=== PATIENT | male | born 1980 | race Hispanic/Latino ===

== ENCOUNTER 2018-09-09 15:31 | Inpatient (IN) | payer SELFPAY ==
--- NOTE | 2018-09-09 15:40 | ER ---
Nurse's Notes [facility] Name: Ronna Gómez Age: 38 yrs Sex: Male : 1980 Arrival Date: 09/09/2018 Time: 15:32 Bed 3 Private MD: Diagnosis: ST elevation (STEMI) myocardial infarction of anterior wall;Other chest pain Presentation: 09/09 15:36 Acuity: ANATOLY 1 ph 15:36 Presenting complaint: EMS states: Was at work in office and began to experience chest ph pain radiating to L arm and N/V, [address] elevation, 4 Zofran, 324 ASA and 100 mcg Fentanyl given. Transition of care: patient was not received from another setting of care. Onset of symptoms was September 09, 2018. Risk Assessment: Do you want to hurt yourself or someone else? Patient reports no desire to harm self or others. Initial Sepsis Screen: Does the patient meet any 2 criteria? No. Patient's initial sepsis screen is negative. Does the patient have a suspected source of infection? No. Patient's initial sepsis screen is negative. Care prior to arrival: Medication(s) given: ASA, 81 mg, x 4, zofran 4 mg, Fentanyl 100mcg IV initiated. 22 GA, in the right hand. 15:36 Method Of Ar[facility]: [facility] T[facility] Assessment: 15:40 General: Appears in no apparent distress. uncomfortable, Behavior is cooperative, ph appropriate for age, restless. Pain: Complains of pain in anterior aspect of left upper chest Pain radiates to left arm Pain began suddenly. Cardiovascular: Reports chest pain, diaphoresis, nausea, vomiting, Capillary refill < 3 seconds in bilateral fingers Rhythm is sinus tachycardia. Cardiovascular: Chest pain is described as severe, quality is heaviness, pressure, sharp, is located in left anterior chest wall radiates to left arm(s). Respiratory: Reports shortness of breath at rest Airway is patent Respiratory effort is even, unlabored, Respiratory pattern is regular, symmetrical. Derm: Skin is intact, is healthy with good turgor, Skin is clammy, Skin is pale, Skin temperature is warm. Musculoskeletal: Circulation, motion, and sensation intact. Range of motion: intact in all extremities. Historical: - Allergies: 16:06 PENICILLINS; ph - PMHx: 16:06 Hypertension; ph - Immunization history:: Adult Immunizations unknown. - Family history:: not pertinent. - Social history:: Smoking status: Patient uses tobacco products, smokes one pack cigarettes per day. Smoking status: Patient uses tobacco products, smokes one pack cigarettes per day. - Ebola Screening: : No symptoms or risks identified at this time. Screenin:00 Abuse screen: Denies threats or abuse. Denies injuries from another. Nutritional ph screening: Nutritional screening: No deficits noted. Tuberculosis screening: No symptoms or risk factors identified. Fall Risk None identified. Assessment: 15:45 Reassessment: Dr. Bustamante a bedside to speak with patient, pt consented for heart iw catheterization, using language line, pt verbalizes understanding. 15:55 Reassessment: solar lab technician team at bedside, pt taken via stretcher, on monitor to dental laboratory manager ph for cardia cathertization. Vital Signs: 15:38 BP 143 / 93; Pulse 140; Resp 22; Temp 97.4; Pulse Ox 100% on R/A; ph 15:55 Pulse 111; Resp 18; Pulse Ox 100% on 2 lpm NC; ph Vitals: 15:55 Cardiac Rhythm Assessment Sinus tach. ph ED Course: 15:32 Patient arrived in ED. bd 15:32 Nic Issa MD is Attending Physician. nomi 15:35 Rosita Beltran RN is Primary Nurse. ph 15:36 Triage completed. ph 15:38 Jb Singh MD is Hospitalizing Provider. nomi 15:38 EKG done, by horticultural technical officer. reviewed by Nic Issa MD. sm3 15:40 No provider procedures requiring assistance completed. Inserted saline lock: 18 gauge ph in right antecubital area, using aseptic technique. Patient admitted, IV remains in place. 15:40 Patient has correct armband on for positive identification. Placed in gown. Bed in low ph position. Side rails up X2. potline monitor on. Pulse ox on. NIBP on. 15:40 Arm band placed on. ph 15:52 XRAY Chest (1 view) In Process Unspecified. EDMS Administered Medications: 15:43 Drug: Lopressor 5 mg Route: IVP; Site: right antecubital; ph 15:55 Follow up: Response: No adverse reaction ph 15:49 Not Given (given by EMS): Aspirin 81 mg PO once ph 15:53 Drug: Effient 60 mg Route: PO; ph 15:55 Follow up: Response: No adverse reaction ph 16:15 Not Given (Physician Discretion): morphine 4 mg IVP once ph 16:15 Not Given (Physician Discretion): Zofran 4 mg IVP once; over 2 minutes ph 16:16 Not Given (Physician Discretion): NS 0.9% 1000 ml IV at 1 bolus Per protocol; 1000 mL ph bolus Outcome: 15:40 Decision to Hospitalize by Provider. nomi 15:56 Admitted to Nurse Charge Rn accompanied by nurse, accompanied by tech, via stretcher. iw 15:56 Condition: stable 15:56 Instructed on the need for admit, Demonstrated understanding of instructions. 16:17 Patient left the ED. ph Signatures: Dispatcher [employer] EDJuanis Verde Corey, MD MD cha Williams, Farnaz, RN CARLOTA Rosita Beltran RN RN Jonathan, Maricel 3
--- NOTE | 2018-09-09 15:40 | EDPHYS ---
Physician Documentation [facility] Name: Ronna Gómez Age: 38 yrs Sex: Male : 1980 Arrival Date: 09/09/2018 Time: 15:32 Bed 3 Private MD: ED Physician Nic Issa HPI: 09/09 15:34 This 38 yrs old Male presents to ER via Unassigned with complaints of chest nomi pain. 15:34 The patient or guardian reports chest pain that is located primarily in the substernal nomi area. The pain does not radiate. Associated signs and symptoms: The patient has no apparent associated signs or symptoms. The chest pain is described as burning, a heaviness, causing indigestion, a pressure. Duration: The patient or guardian reports a single episode, that is still ongoing. Modifying factors: The symptoms are alleviated by nothing. the symptoms are aggravated by nothing. Severity of pain: At its worst the pain was moderate in the emergency department the pain is unchanged. The patient has not experienced similar symptoms in the past. Historical: - Allergies: 16:06 PENICILLINS; ph - PMHx: 16:06 Hypertension; ph - Immunization history:: Adult Immunizations unknown. - Family history:: not pertinent. - Social history:: Smoking status: Patient uses tobacco products, smokes one pack cigarettes per day. Smoking status: Patient uses tobacco products, smokes one pack cigarettes per day. - Ebola Screening: : No symptoms or risks identified at this time. ROS: 15:34 Constitutional: Negative for fever, chills, and weight loss, Eyes: Negative for injury, nomi pain, redness, and discharge, ENT: Negative for injury, pain, and discharge, Neck: Negative for injury, pain, and swelling, Respiratory: Negative for shortness of breath, cough, wheezing, and pleuritic chest pain, Abdomen/GI: Negative for abdominal pain, nausea, vomiting, diarrhea, and constipation, Back: Negative for injury and pain, : Negative for injury, bleeding, discharge, and swelling, MS/Extremity: Negative for injury and deformity, Skin: Negative for injury, rash, and discoloration, Neuro: Negative for headache, weakness, numbness, tingling, and seizure, Psych: Negative for depression, anxiety, suicide ideation, homicidal ideation, and hallucinations, Allergy/Immunology: Negative for hives, rash, and allergies, Endocrine: Negative for neck swelling, polydipsia, polyuria, polyphagia, and marked weight changes, Hematologic/Lymphatic: Negative for swollen nodes, abnormal bleeding, and unusual bruising. 15:34 Cardiovascular: Positive for chest pain. Exam: 15:34 Constitutional: This is a well developed, well nourished patient who is awake, alert, nomi and in no acute distress. Head/Face: Normocephalic, atraumatic. Eyes: Pupils equal round and reactive to light, extra-ocular motions intact. Lids and lashes normal. Conjunctiva and sclera are non-icteric and not injected. Cornea within normal limits. Periorbital areas with no swelling, redness, or edema. ENT: Nares patent. No nasal discharge, no septal abnormalities noted. Tympanic membranes are normal and external auditory canals are clear. Oropharynx with no redness, swelling, or masses, exudates, or evidence of obstruction, uvula midline. Mucous membranes moist. Neck: Trachea midline, no thyromegaly or masses palpated, and no cervical lymphadenopathy. Supple, full range of motion without nuchal rigidity, or vertebral point tenderness. No Meningismus. Chest/axilla: Normal chest wall appearance and motion. Nontender with no deformity. No lesions are appreciated. Cardiovascular: Regular rate and rhythm with a normal S1 and S2. No gallops, murmurs, or rubs. Normal PMI, no JVD. No pulse deficits. Respiratory: Lungs have equal breath sounds bilaterally, clear to auscultation and percussion. No rales, rhonchi or wheezes noted. No increased work of breathing, no retractions or nasal flaring. Abdomen/GI: Soft, non-tender, with normal bowel sounds. No distension or tympany. No guarding or rebound. No evidence of tenderness throughout. Back: No spinal tenderness. No costovertebral tenderness. Full range of motion. Male : Normal genitalia with no discharge or lesions. MS/ Extremity: Pulses equal, no cyanosis. Neurovascular intact. Full, normal range of motion. Neuro: Awake and alert, GCS 15, oriented to person, place, time, and situation. Cranial nerves II-XII grossly intact. Motor strength 5/5 in all extremities. Sensory grossly intact. Cerebellar exam normal. Normal gait. Psych: Awake, alert, with orientation to person, place and time. Behavior, mood, and affect are within normal limits. 15:34 Skin: Appearance: Color: dusky, Temperature: warm, Moisture: diaphoretic, petechiae, not noted. Vital Signs: 15:38 BP 143 / 93; Pulse 140; Resp 22; Temp 97.4; Pulse Ox 100% on R/A; ph 15:55 Pulse 111; Resp 18; Pulse Ox 100% on 2 lpm NC; ph MDM: 15:32 Patient medically screened. [facility] 15:38 Data reviewed: vital signs, nurses notes, lab test result(s), EKG, radiologic studies, [facility] plain films. 09/09 15:34 Order name: Basic Metabolic Panel [facility] 09/09 15:34 Order name: CBC with Diff [facility] 09/09 15:34 Order name: LFT's [facility] 09/09 15:34 Order name: Magnesium [facility] 09/09 15:34 Order name: NT PRO-BNP [facility] 09/09 15:34 Order name: PT-INR [facility] 09/09 15:34 Order name: Troponin (emerg Dept Use Only) [facility] 09/09 15:34 Order name: XRAY Chest (1 view) [facility] 09/09 15:34 Order name: UDS [facility] 09/09 15:35 Order name: Basic Metabolic Panel [facility] 09/09 15:35 Order name: CBC with Automated Diff [facility] 09/09 15:35 Order name: Liver (Hepatic) Function [facility] 09/09 15:34 Order name: EKG; Complete Time: 15:37 [facility] 09/09 15:34 Order name: Cardiac monitoring; Complete Time: 15:45 [facility] 09/09 15:34 Order name: EKG - Nurse/Tech; Complete Time: 15:45 [facility] 09/09 15:34 Order name: IV Saline Lock; Complete Time: 15:46 [facility] 09/09 15:34 Order name: Labs collected and sent; Complete Time: 15:46 [facility] 09/09 15:34 Order name: O2 Per Protocol; Complete Time: 15:46 [facility] 09/09 15:34 Order name: O2 Sat Monitoring; Complete Time: 15:46 [facility] 09/09 15:34 Order name: NPO; Complete Time: 16:16 [facility] Administered Medications: 15:43 Drug: Lopressor 5 mg Route: IVP; Site: right antecubital; ph 15:55 Follow up: Response: No adverse reaction ph 15:49 Not Given (given by EMS): Aspirin 81 mg PO once ph 15:53 Drug: Effient 60 mg Route: PO; ph 15:55 Follow up: Response: No adverse reaction ph 16:15 Not Given (Physician Discretion): morphine 4 mg IVP once ph 16:15 Not Given (Physician Discretion): Zofran 4 mg IVP once; over 2 minutes ph 16:16 Not Given (Physician Discretion): NS 0.9% 1000 ml IV at 1 bolus Per protocol; 1000 mL ph bolus Disposition: 09/09/18 15:40 Hospitalization ordered by Jb Singh for Inpatient Admission. Preliminary diagnosis are ST elevation (STEMI) myocardial infarction of anterior wall, Other chest pain. - Bed requested for Intensive Care Unit. - Status is Inpatient Admission. ph - Condition is Serious. - Problem is new. - Symptoms are unchanged. UTI on Admission? No Signatures: Dispatcher [employer] EDNic Tavares MD MD cha Williams, Irene, RN RN Rosita Beltran RN RN ph Corrections: (The following items were deleted from the chart) 15:40 15:40 Hospitalization Ordered by Jb Singh MD for Inpatient Admission. Preliminary nomi diagnosis is ST elevation (STEMI) myocardial infarction of anterior wall; Other chest pain. Bed requested for Telemetry/MedSurg (Inpatient). Status is Inpatient Admission. Condition is Serious. Problem is new. Symptoms are unchanged. UTI on Admission? No. nomi 16:17 15:40 09/09/2018 15:40 Hospitalization Ordered by Jb Singh MD for Inpatient ph Admission. Preliminary diagnosis is ST elevation (STEMI) myocardial infarction of anterior wall; Other chest pain. Bed requested for Intensive Care Unit. Status is Inpatient Admission. Condition is Serious. Problem is new. Symptoms are unchanged. UTI on Admission? No. nomi
[2018-09-09] MEDS ORDERED: NA CHLORIDE 0.9% 1,000 ML ONE ×2 (15:55→17:17)
[2018-09-09] MEDS ORDERED: ONDANSETRON 4 MG/2 ML VIAL ONE (15:55)
[2018-09-09] MEDS ORDERED: HEPA 1000U/500MLS 2,000 UNIT/1,000 ML BAG IV ONE (15:55)
[2018-09-09] MEDS ORDERED: LIDOCAINE 1% MPF 30 ML VIAL ONE (15:55)
[2018-09-09] MEDS ORDERED: MORPHINE 4 MG/ML SYR ONE (15:55)
[2018-09-09] MEDS ORDERED: METOPROLOL TARTRATE 5 MG/5 ML INJ IV ONE ×4 (15:55→17:06)
[2018-09-09] MEDS ORDERED: PRASUGREL (EFFIENT) 10 MG TAB ONE (16:02)
[2018-09-09] MEDS ORDERED: NA CHLORIDE 0.9% 100 ML IV ONE (16:02)
[2018-09-09] MEDS ORDERED: NICARDIPINE HCL 25 MG/10 ML IV ONE (16:03)
[2018-09-09] MEDS ORDERED: HEPARIN 5000 UNIT/ML 1 ML VIAL ONE (16:03)
[2018-09-09] MEDS ORDERED: ATROPINE SULF 1 MG/10 ML SYR IV ONE (16:03)
[2018-09-09] MEDS ORDERED: FENTANYL CITR 100 MCG/2 ML ONE (16:07)
[2018-09-09] MEDS ORDERED: MIDAZOLAM HCL 2 MG/2 ML INJ ONE ×2 (16:07→16:30)
[2018-09-09 16:13] LABS: Protime INR 0.99
[2018-09-09 16:15] LABS: Absolute Lymphocytes (CBC) 7.4 K/uL (0.7-4.9); Basophils % 0.4 % (0-1.3); Eosinophils % 0.1 % (0-4.4); Hematocrit 45.8 % (39.6-49.0); Lymphocytes % 41.1 % (15.3-44.8); MPV 11.4 fL (7.6-11.3); Monocytes % 7.6 % (3.3-12.3); RBC Red Blood Cell Count 4.82 M/uL (4.33-5.43)
[2018-09-09 16:38] LABS: ALT/SGPT 41 U/L (12-78); AST/SGOT 19 U/L (15-37); Alkaline Phosphatase 55 U/L (45-117); BUN Blood Urea Nitrogen 16 mg/dL (7-18); Bicarbonate 22 mmol/L (21-32); Bilirubin Direct 0.1 mg/dL (0-0.2); Bilirubin Total 0.3 mg/dL (0.2-1.0); Glucose Level 170 mg/dL (74-106); Protein, Total 7.6 g/dL (6.4-8.2); Sodium Level 142 mmol/L (136-145); Troponin (Emerg Dept Use Only) 0.05 ng/mL (0.0-0.045)
[2018-09-09 16:50] LABS: NT PRO-BNP < 5 pg/mL (<125)
--- NOTE | 2018-09-09 17:18 | EKG ---
Test Date: 2018-09-09 Test Time: 15:29:27 Spreader: MANUELITO MEASUREMENT RESULTS: Intervals: Rate: 135 HI: 134 QRSD: 88 QT: 300 QTc: 450 Starks: P: 63 HI: 134 QRS: 62 T: 39 INTERPRETIVE STATEMENTS: Sinus tachycardia ST elevation, consider anterior injury or acute infarct ACUTE [place] Abnormal ECG No previous ECG available for comparison Electronically Signed On 09-09-18 17:17:09 CDT by Juan Bustamante
[2018-09-09] MEDS ORDERED: NITROGLYCERIN 0.4 MG/TAB SL PRN ×2 (18:06→18:36)
[2018-09-09] MEDS ORDERED: ACETAMINOPHEN 325 MG TABLET PO PRN (18:06)
[2018-09-09] MEDS ORDERED: NA CHLORIDE 0.9% 1,000 ML IV SCH ×2 (18:36→19:00)
--- NOTE | 2018-09-09 19:13 | RAD REPORT ---
EXAM DESCRIPTION: Nic Single View09/09/2018 3:54 pm CLINICAL HISTORY: Chest pain COMPARISON: none FINDINGS: Artifact overlies the right chest The lungs appear clear of acute infiltrate. The heart is normal size IMPRESSION: No acute abnormalities displayed
--- NOTE | 2018-09-09 19:23 | P.HP ---
Certification for Inpatient Patient admitted to: Inpatient Practitioner: I am a practitioner with admitting privileges, knowledge of patient current condition, hospital course, and medical plan of care. Services: Services provided to patient in accordance with Admission requirements found in Title 42 Section 412.3 of the Code of Federal Regulations Patient History Date of Service: 09/09/18 Reason for admission: Chest pain History of Present Illness: This is a 38-year-old male with no real past medical history who is a current smoker and drinks 20-30 espressos every day admitted for chest pain. Per patient, he was at work this morning, and it does job. He started with sharp chest pain in the substernal area without any radiation. EMS was called from his work and he was brought to the emergency room. In the ER, patient's EKG were found to have ST elevations and patient was taken to the cardiac catheterization lab from the ER by the room service associate. In the bed laborer, patient with AFib requiring 200 joules of electric shock which improved his rhythm. He then had a mid LAD stent placed and then was transferred to the ICU. At the time of my exam in the ICU, patient was alert oriented x3, in no acute distress and hemodynamically stable. He was symptom-free. Allergies Penicillins Allergy (Verified 09/09/18 17:15) Hives/Rash Home medications list reviewed: Yes Home Medications: NK [No Home Meds] 09/09/18 - Past Medical/Surgical History Diabetic: No -: migraines -: 1 ppd smoker -: 20-30 shots of espresso/day -: tonsillectomy - Family History Mother -: Hypertension, GI disease, Seizures Notes: colitis - Social History Smoking Status: Current every day smoker Alcohol use: No CD- Drugs: No Caffeine use: Yes Place of Residence: Home Review of Systems 10-point ROS is otherwise unremarkable Physical Examination - Vital Signs Temperature: 97.5 F Blood Pressure: 133/90 Pulse: 108 Respirations: 16 Pulse Ox (%): 99 - Physical Exam General: Alert, In no apparent distress, Oriented x3 HEENT: Atraumatic, PERRLA, Mucous membr. moist/pink, EOMI, Sclerae nonicteric Neck: Supple, 2+ carotid pulse no bruit, No LAD, Without JVD or thyroid abnormality Respiratory: Clear to auscultation bilaterally, Normal air movement Cardiovascular: Regular rate/rhythm, Normal S1 S2, Other (Site of cath, groin: Intact, dry without any drainage. No erythema noted.) Gastrointestinal: Normal bowel sounds, No tenderness Musculoskeletal: No tenderness Integumentary: No rashes Neurological: Normal gait, Normal speech, Normal strength at 5/5 x4 extr, Normal tone, Normal affect Lymphatics: No axilla or inguinal lymphadenopathy - Studies Laboratory Data (last 24 hrs) 09/09/18 15:42: PT 11.7, INR 0.99 09/09/18 15:42: WBC 18.0 H, Hgb 15.7, Hct 45.8, Plt Count 238 09/09/18 15:42: Sodium 142, Potassium 3.0 L, BUN 16, Creatinine 1.41 H, Glucose 170 H, Magnesium 2.0, Total Bilirubin 0.3, AST 19, ALT 41, Alkaline Phosphatase 55 Assessment and Plan - Problems (Diagnosis) (1) STEMI (ST elevation myocardial infarction) Current Visit: Yes Status: Acute Plan: Status post cardiac catheterization and stent placement Qualifiers: Involved coronary artery: LAD coronary artery Qualified Code(s): I21.02 - ST elevation (STEMI) myocardial infarction involving left anterior descending coronary artery (2) Nicotine dependence Current Visit: Yes Status: Acute Qualifiers: Nicotine product type: cigarettes Substance use status: uncomplicated Qualified Code(s): F17.210 - Nicotine dependence, cigarettes, uncomplicated (3) Obesity (BMI 30.0-34.9) Current Visit: No Status: Chronic (4) Ventricular fibrillation Current Visit: Yes Status: Resolved - Plan -Monitor in ICU. -Continue chest pain guidelines -cardiology on board, recommendations and help appreciated. -will need education on decreasing coffee/caffeine intake. -Counseled on smoking cessation, more than 10 min. Disposition: Monitor and I see. Potential transfer to the floor tomorrow, per cardiology. - Advance Directives Does patient have a Living Will: No Does patient have a Durable POA for Healthcare: No Time Spent Managing Pts Care (In Minutes): 55
--- NOTE | 2018-09-09 20:04 | CON ---
History Of Present Illness: A 38-year-old man. Mr. Gómez started having chest pain just about 15 m inutes before coming to the hospital and the EKG indicates he has an acute anterior IL with sinus tac hycardia, heart rate 140. The patient has no previous history of heart disease, does not have diabet es, hypertension. He takes no prescription medicines. He thinks he might be allergic to penicillin but is unsure. He smokes cigarettes every day. Family History: We are not very certain of right now. Physical Examination: General: He is about 5 feet 8, 210 pounds. Alert, oriented, pleasant, seems to be in mild distress. Vital Signs: Blood pressure 143/90, heart rate 139, sinus tach. HEENT: Unremarkable. Lungs: Clear. Carotids, no bruit. Heart: Rapid but otherwise within normal limits. Abdomen: Soft. Extremities: Trace edema, distal pulses palpable. Impression: The patient is having an ST-elevation myocardial infarction. We want to give him Effien t, aspirin and do an emergency cardiac cath. HAMIDA/CELENA Voice ID: [id number] Report ID: [id number]
[2018-09-09] MEDS: ATORVASTATIN 80 MG TAB PO SCH (20:41)
[2018-09-09] MEDS ORDERED: METOPROLOL TAR 50 MG TAB PO SCH (21:00)
[2018-09-09] MEDS ORDERED: ATORVASTATIN 20 MG TAB PO SCH (21:00)
[2018-09-09 21:15] LABS: Barbiturates NEGATIVE (NEGATIVE); Benzodiazepines POSITIVE (NEGATIVE); Cocaine NEGATIVE (NEGATIVE); METHAMPHETAM NEGATIVE (NEGATIVE); Methadone NEGATIVE (NEGATIVE); Opiates NEGATIVE (NEGATIVE); Phencyclidine NEGATIVE (NEGATIVE); THC Cannibis NEGATIVE (NEGATIVE)
--- NOTE | 2018-09-10 01:53 | OP ---
Surgeon: Juan Bustamante MD A 38-year-old man. Additional Attending Physician: Dr. Parker. Procedures: Left heart catheterization with coronary angiography, emergency percutaneous coronary in tervention and stent of a mid left anterior descending artery stenosis 99% or more, with SIMRAN grade 2 flow preprocedure with 0% residual stenosis after a stent. He also required defibrillation. He had ventricular fibrillation which occurred just before there were any angiograms or stents done. Succe ssful defibrillation with 200 joules. Procedural Findings: The patient had a 99% mid left anterior descending artery stenosis. Procedure In Detail: The patient came to our emergency room with signs, symptoms, EKG changes consis tent with acute anterior IA. He gave informed consent, was brought to the cardiac seed laboratory assistant emergentl y. It had been 2 or 3 hours since he ate something. He was prepared and draped in usual sterile fas hion, sedated with Versed and fentanyl. Right femoral artery was used. The tissues over the right f emoral artery were anesthetized with 1% lidocaine, entered with an 18-gauge needle, and the modified Seldinger technique allowed us to place a 6-Ethiopian sheath. As soon as the sheath was in, we were abl e to take pictures of the left coronary with a 6-Ethiopian JL-4 right coronary with a 6-Ethiopian 3DRC. We did not attempt an LV-gram. We switched immediately to an emergency stent mode, used an XB LAD 3.5 guide with side holes, a Lorena wire, 3.0 x 15 Emerge balloon. We were able to cross the lesion, pre dilate. We removed the balloon after two inflations up to 10 atmospheres. We placed a 3.0 x 16 Syne rgy stent across the lesion. It was just after a large diagonal bifurcation. There was enough of a normal zone after the bifurcation to allow good stent placement without compromising side branches. We inflated the stent to 14 atmospheres. We gave 100 mcg of nitroglycerin intracoronary afterwards. We took pictures of the lesion; first with the wire in; then we removed the wire, all balloons; and catheters; and took final pictures; removed the guide catheter. We took an angiogram of the right fe moral artery via the 6-Ethiopian sheath. We will use an Angio-Seal device to close, when the activated clotting time was less than 300 seconds. After giving Angiomax bolus and drip, the initial activated clotting time was less than 400 seconds, so we gave another half bolus and all the other ACTs occurr ed after the procedure was completed and Angiomax has been turned off. He has an excellent angiograp hic result. He had ventricular fibrillation that lasted for somewhere around 20 seconds. One defibr illation worked. Complications: There were no other complications. Estimated Blood Loss: 20 cc. Inletter: Deon Cortez. HAMIDA/CELENA Voice ID: [id number] Report ID: [id number]
[2018-09-10 05:23] LABS: Absolute Lymphocytes (CBC) 3.5 K/uL (0.7-4.9); Basophils % 0.5 % (0-1.3); Eosinophils % 0.3 % (0-4.4); Hematocrit 42.1 % (39.6-49.0); Lymphocytes % 24.4 % (15.3-44.8); MPV 10.7 fL (7.6-11.3); RBC Red Blood Cell Count 4.44 M/uL (4.33-5.43)
[2018-09-10 05:39] LABS: ALT/SGPT 40 U/L (12-78); AST/SGOT 57 U/L (15-37); Albumin 3.3 g/dL (3.4-5.0); Alkaline Phosphatase 49 U/L (45-117); BUN Blood Urea Nitrogen 15 mg/dL (7-18); Bicarbonate 25 mmol/L (21-32); Bilirubin Total 0.5 mg/dL (0.2-1.0); Glucose Level 92 mg/dL (74-106); HDL Cholesterol 30 mg/dL (40-60); LDL Cholesterol, Calculated 86 (<130); Potassium 3.9 mmol/L (3.5-5.1); Protein, Total 6.5 g/dL (6.4-8.2); Sodium Level 141 mmol/L (136-145)
[2018-09-10] MEDS: ASPIRIN EC 81 MG TAB PO SCH (09:17)
[2018-09-10] MEDS: CLOPIDOGREL 75 MG TABLET PO SCH (09:18)
[2018-09-10] MEDS: METOPROLOL TAR 50 MG TAB PO SCH ×2 (09:18→22:01)
--- NOTE | 2018-09-10 11:35 | PN ---
Mr. Gómez had an acute RI yesterday, complicated with ventricular fibrillation, required defibrillat ion during the stent procedure. He had a mid LAD 99% stenosis. This was successfully stented. He n eeds some adjustment in his medicines and more time in the hospital before discharge. The patient is threatening to leave against medical advice. HAMIDA/CELENA Voice ID: [id number] Report ID: [id number]
--- NOTE | 2018-09-10 12:22 | P.PN ---
Subjective Date of Service: 09/10/18 Primary Care Provider: Yuki Chief Complaint: Chest pain Subjective: Other (Patient doing well this time. Patient without any chest pain.) Physical Examination - Vital Signs Temperature: 97.5 F Blood Pressure: 119/72 Pulse: 76 Respirations: 18 Pulse Ox (%): 98 - Physical Exam General: Alert, In no apparent distress, Oriented x3, Cooperative HEENT: Atraumatic Neck: Supple Respiratory: Clear to auscultation bilaterally, Normal air movement Cardiovascular: Normal pulses, Regular rate/rhythm Gastrointestinal: Normal bowel sounds, Soft and benign, Non-distended, No tenderness, No masses, No rebound, No guarding Musculoskeletal: No erythema, No tenderness, No warmth Integumentary: No tenderness/swelling, No erythema, No warmth, No cyanosis Neurological: Normal speech, Normal strength at 5/5 x4 extr, Normal tone, Normal affect - Studies Laboratory Data (last 24 hrs) 09/09/18 15:42: PT 11.7, INR 0.99 09/09/18 15:42: WBC 18.0 H, Hgb 15.7, Hct 45.8, Plt Count 238 09/09/18 15:42: Sodium 142, Potassium 3.0 L, BUN 16, Creatinine 1.41 H, Glucose 170 H, Magnesium 2.0, Total Bilirubin 0.3, AST 19, ALT 41, Alkaline Phosphatase 55 Medications List Reviewed: Yes Assessment & Plan Discharge Plan: Home Plan to discharge in: 24 Hours Physician Review Additional Text: Impression: Acute coronary syndrome complicated with ventricular fibrillation status post defibrillation during stent procedure with noted mid LAD 99% stenosis with successful stenting Hypertension Hyperlipidemia Plan: Acute coronary syndrome complicated with ventricular fibrillation status post defibrillation during stent procedure with noted mid LAD 99% stenosis with successful stenting: Continue with current medications including aspirin, Plavix, statin medication and beta-leeann therapy. Patient had wanted to go home to [place] today. Patient was attempting to leave against medical advice as he had a citizenship appointment tomorrow in [place]. I discussed the case with cardiology and patient. Patient plans to stay and comply with recommendations from cardiology. Will continue with medications and monitoring for at least 24 hr. Patient will be transferred to the floor. Likely discharge tomorrow. Patient will need close follow up within 1 week with cardiology as an outpatient. Patient may return to [place] after that time. Hypertension: Continue with beta-leeann therapy. Will monitor and adjust appropriately. Hyperlipidemia: Continue with statin medication. Time Spent Managing Pts Care (In Minutes): 55
[2018-09-10] MEDS ORDERED: ENOXAPARIN 40 MG/0.4 ML SQ SCH (17:00)
[2018-09-10] MEDS: ATORVASTATIN 80 MG TAB PO SCH (22:01)
[2018-09-11 05:42] LABS: ALT/SGPT 35 U/L (12-78); AST/SGOT 30 U/L (15-37); Albumin 3.7 g/dL (3.4-5.0); Alkaline Phosphatase 56 U/L (45-117); BUN Blood Urea Nitrogen 15 mg/dL (7-18); Bicarbonate 24 mmol/L (21-32); Bilirubin Total 0.5 mg/dL (0.2-1.0); Glucose Level 96 mg/dL (74-106); Potassium 4.1 mmol/L (3.5-5.1); Protein, Total 7.4 g/dL (6.4-8.2); Sodium Level 141 mmol/L (136-145)
[2018-09-11 05:46] LABS: Absolute Lymphocytes (CBC) 3.4 K/uL (0.7-4.9); Basophils % 0.4 % (0-1.3); Eosinophils % 0.2 % (0-4.4); Hematocrit 47.2 % (39.6-49.0); Lymphocytes % 31.7 % (15.3-44.8); MPV 10.8 fL (7.6-11.3); Monocytes % 9.6 % (3.3-12.3); RBC Red Blood Cell Count 4.95 M/uL (4.33-5.43)
[2018-09-11] MEDS: ASPIRIN EC 81 MG TAB PO SCH (08:24)
[2018-09-11] MEDS: CLOPIDOGREL 75 MG TABLET PO SCH (08:24)
[2018-09-11] MEDS: METOPROLOL TAR 50 MG TAB PO SCH (08:24)
--- NOTE | 2018-09-11 10:49 | P.DS ---
Admission Date: 09/09/18 Discharge Date: 09/11/18 Primary Care Provider: [place] Disposition: ROUTINE DISCHARGE Discharge Condition: GOOD Reason for Admission: Chest pain Consultations: Cardiology-Dr. Bustamante Procedures: Heart catheterization: Procedures: Left heart catheterization with coronary angiography, emergency percutaneous coronary intervention and stent of a mid left anterior descending artery stenosis 99% or more, with SIMRAN grade 2 flow preprocedure with 0% residual stenosis after a stent. He also required defibrillation. He had ventricular fibrillation which occurred just before there were any angiograms or stents done. Successful defibrillation with 200 joules. Procedural Findings: The patient had a 99% mid left anterior descending artery stenosis. Complications: There were no other complications. Estimated Blood Loss: 20 cc. Medical problem list: Acute coronary syndrome complicated with ventricular fibrillation status post defibrillation during heart catheterization with noted mid LAD 99% stenosis with successful stenting Hypertension Hyperlipidemia Brief History of Present Illness: 38-year-old male presented to emergency room with severe chest pain that started 15 min prior to admission. Patient found to have elevated ST changes. Patient was admitted and sent for emergent heart catheterization. Hospital Course: Patient presented with chest pain secondary to acute Coronary Syndrome. Patient required emergent heart catheterization due to EKG findings of ST elevation and tachycardia. Cardiology proceeded with heart catheterization with coronary angiography. Patient found to have critical 99% stenosis of the mid left anterior descending artery. Stent was placed. Patient required defibrillation due to ventricular fibrillation just before angiography and stent done. Defibrillation was successful with 200 joules. Patient tolerated the procedure well. Patient was monitored closely thereafter. Patient transitioned from ICU to the regular floor. At discharge he is without any significant chest pain or shortness of breath. Patient is originally from [place]. Patient plans to follow up with cardiology in 1 week. At discharge he will continue with aspirin 81 mg daily, Plavix 75 mg daily, metoprolol 100 mg twice daily, Lipitor 80 mg daily and nitro to be use as needed for chest pain. Compliance with medication addressed in detail. Patient likely to return to [place] after follow up with cardiology. Patient with tobacco abuse. Tobacco cessation addressed in detail. Patient with hypertension. New medication includes metoprolol 100 mg 1 pill twice daily. Recommend to maintain blood pressures less 150/80. Further adjustment can be done by cardiology. Patient with hyperlipidemia. New medication includes Lipitor 80 mg daily. Recommend LDL below 70. Further adjustment can be done by cardiology. No work until cleared by cardiology, likely at least for 2 weeks. Vital Signs/Physical Exam: Temp Pulse Resp BP Pulse Ox 97.3 F 76 16 114/72 97 09/11/18 08:00 09/11/18 08:24 09/11/18 08:00 09/11/18 08:24 09/11/18 08:00 General: Alert, In no apparent distress, Oriented x3, Cooperative HEENT: Atraumatic Neck: Supple Respiratory: Clear to auscultation bilaterally, Normal air movement Cardiovascular: Normal pulses, Regular rate/rhythm Gastrointestinal: Normal bowel sounds, Soft and benign, Non-distended, No tenderness, No masses, No rebound, No guarding Musculoskeletal: No erythema, No tenderness, No warmth Integumentary: No tenderness/swelling, No erythema, No warmth, No cyanosis Neurological: Normal speech, Normal strength at 5/5 x4 extr, Normal tone, Normal affect Laboratory Data at Discharge: WBC 10.6 K/uL (4.3-10.9) D 09/11/18 05:05 Hgb 16.6 g/dL (13.6-17.9) 09/11/18 05:05 Hct 47.2 % (39.6-49.0) 09/11/18 05:05 Plt Count 211 K/uL (152-406) 09/11/18 05:05 PT 11.7 SECONDS (9.5-12.5) 09/09/18 15:42 INR 0.99 09/09/18 15:42 Sodium 141 mmol/L (136-145) 09/11/18 05:05 Potassium 4.1 mmol/L (3.5-5.1) 09/11/18 05:05 BUN 15 mg/dL (7-18) 09/11/18 05:05 Creatinine 0.85 mg/dL (0.55-1.3) 09/11/18 05:05 Glucose 96 mg/dL (74-106) 09/11/18 05:05 Magnesium 2.0 mg/dL (1.8-2.4) 09/09/18 15:42 Total Bilirubin 0.5 mg/dL (0.2-1.0) 09/11/18 05:05 AST 30 U/L (15-37) 09/11/18 05:05 ALT 35 U/L (12-78) 09/11/18 05:05 Alkaline Phosphatase 56 U/L (45-117) 09/11/18 05:05 Triglycerides 277 mg/dL (<150) H 09/10/18 04:46 Cholesterol 171 mg/dL (<200) 09/10/18 04:46 HDL Cholesterol 30 mg/dL (40-60) L 09/10/18 04:46 Cholesterol/HDL Ratio 5.70 09/10/18 04:46 Home Medications: Aspirin [Aspirin EC 81 MG] 81 mg PO DAILY #90 tablet. 09/11/18 Atorvastatin Calcium [Lipitor] 80 mg PO BEDTIME #30 tab 09/11/18 Clopidogrel Bisulfate [Plavix*] 75 mg PO DAILY #30 tablet 09/11/18 Metoprolol Tartrate 100 mg PO BID #60 tablet 09/11/18 Nitroglycerin [Nitrostat*] 0.4 mg SL UD PRN #30 tab 09/11/18 New Medications: Aspirin [Aspirin EC 81 MG] 81 mg PO DAILY #90 tablet. Atorvastatin Calcium [Lipitor] 80 mg PO BEDTIME #30 tab Clopidogrel Bisulfate [Plavix*] 75 mg PO DAILY #30 tablet Metoprolol Tartrate 100 mg PO BID #60 tablet Nitroglycerin [Nitrostat*] 0.4 mg SL UD PRN #30 tab PRN Reason: Pain Scale 2-4 (Mild) Patient Discharge Instructions: 1. Patient to follow up with Cardiology in one week. 2. Patient presented with chest pain secondary to acute Coronary Syndrome. Patient required emergent heart catheterization due to EKG findings of ST elevation and tachycardia. Cardiology proceeded with heart catheterization with coronary angiography. Patient found to have critical 99% stenosis of the mid left anterior descending artery. Stent was placed. Patient required defibrillation due to ventricular fibrillation just before angiography and stent done. Defibrillation was successful with 200 joules. Patient tolerated the procedure well. Patient was monitored closely thereafter. Patient transitioned from ICU to the regular floor. At discharge he is without any significant chest pain or shortness of breath. Patient is originally from [place]. Patient plans to follow up with cardiology in 1 week. At discharge he will continue with aspirin 81 mg daily, Plavix 75 mg daily, metoprolol 100 mg twice daily, Lipitor 80 mg daily and nitro to be use as needed for chest pain. Compliance with medication addressed in detail. Patient likely to return to [place] after follow up with cardiology. 2. Patient with tobacco abuse. Tobacco cessation addressed in detail. 3. Patient with hypertension. New medication includes metoprolol 100 mg 1 pill twice daily. Recommend to maintain blood pressures less 150/80. Further adjustment can be done by cardiology. 4. Patient with hyperlipidemia. New medication includes Lipitor 80 mg daily. Recommend LDL below 70. Further adjustment can be done by cardiology. 5. No work until cleared by cardiology, likely at least for 2 weeks. Diet: AHA Activity: Ad misael Time spent managing pt's care (in minutes): 55
--- NOTE | 2018-09-11 13:41 | PN ---
Mr. Gómez had ST-elevation SC, received a stent 2 days ago during the acute phase of the SC. Presen tly, he is doing well. Right femoral artery puncture site looks normal. He is tolerating medicines, all of them are new to him, aspirin, atorvastatin, clopidogrel, metoprolol 100 b.i.d., p.r.n. nitrog lycerin. I believe the patient could be discharged today. He should have a followup with me within 2 weeks, and he should avoid going back to work until he is seen as an outpatient. He absolutely nee ds to quit using tobacco in any form to have any hope of having a good prognosis. HAMIDA/CELENA Voice ID: [id number] Report ID: [id number]
== END 2018-09-11 13:06 | disposition home or self-care (01) | DRG 246 ==
LOC: ER 15:31 → 3RD-ICU 16:33 → 4TH 09-10 15:50
PROVIDERS: ADMIT Family Medicine; ATTEND Family Medicine
PROC: 027034Z Dilation of Coronary Artery, One Artery with Drug-eluting Intraluminal Device, Percutaneous Approach (ICD-10-PCS; principal; 2018-09-09)
PROC: 4A023N7 Measurement of Cardiac Sampling and Pressure, Left Heart, Percutaneous Approach (ICD-10-PCS; 2018-09-09)
PROC: B2111ZZ Fluoroscopy of Multiple Coronary Arteries using Low Osmolar Contrast (ICD-10-PCS; 2018-09-09)
PROC: 5A2204Z Restoration of Cardiac Rhythm, Single (ICD-10-PCS; 2018-09-09)
DX: I21.3 ST elevation (STEMI) myocardial infarction of unspecified site (principal); I49.01 Ventricular fibrillation; I25.119 Atherosclerotic heart disease of native coronary artery with unspecified angina pectoris; I10 Essential (primary) hypertension; F17.210 Nicotine dependence, cigarettes, uncomplicated; E78.5 Hyperlipidemia, unspecified; E66.9 Obesity, unspecified; Z68.31 Body mass index [BMI] 31.0-31.9, adult; Z88.0 Allergy status to penicillin
CPT/HCPCS: 36415; 71045; 80048; 80053; 80061; 80076; 80307; 83735; 83880; 84484; 85025; 85347; 85610; 92928; 93005; 93454; 94760; 96374; 99285; C1725; C1760; C1877; C1893; J0583; J1644; J1650; J2250; J2405; J3010; J7030